=== PATIENT | male | born 1970 | race Caucasian/White ===

== ENCOUNTER 2020-02-22 13:44 | Emergency (ER) | payer BC ==
[~2020-02-22] VITALS: Ht 177.8 cm; Wt 102.1 kg
[~2020-02-22 13:44] MED LIST: CHOLESTEROL MED; Cipro500 MG PO; Flomax0.4 MG PO; HYDACE5 PO; LISI5 PO; LORA.5 PO; MELO7.5; NAPR500 PO; NAPR550 PO; ONDA4ODT MM; OXYACE5T PO; OXYACE7.5T PO; OXYC10ER PO; PRED20 PO; PROM25 PO; PSEU30 PO; TAMS.4ER PO; UNK BP MED; VOLTAREN GEL; Zofran8 MG PO
[2020-02-22 14:39] LABS: Source, Urine Clean Catch
[2020-02-22 14:45] LABS: BASOPHILS ABSOLUTE AUTO 0.07 K/mm3 (0.00-0.23); BASOPHILS PERCENT AUTO 1 % (0-2); EOSINOPHILS ABSOLUTE AUTO 0.17 K/mm3 (0.00-0.68); EOSINOPHILS PERCENT AUTO 2 % (0-6); Hematocrit 44.7 % (37.0-53.0); Hemoglobin 15.1 g/dL (13.5-17.5); IMMATURE GRAN ABSOLUTE AUTO 0.02 K/mm3 (0.00-0.10); IMMATURE GRAN PERCENT AUTO 0 % (0-1); LYMPHOCYTES ABSOLUTE AUTO 1.63 K/mm3 (0.84-5.20); LYMPHOCYTES PERCENT AUTO 20 % (21-46); MONOCYTES ABSOLUTE AUTO 0.69 K/mm3 (0.16-1.47); MONOCYTES PERCENT AUTO 9 % (4-13); Mean Corpuscular HGB 31.5 pg (26.0-34.0); Mean Corpuscular HGB Conc 33.8 g/dL (31.5-36.5); Mean Corpuscular Volume 93 fL (80-100); Mean Platelet Volume 9.6 fL (9.1-12.4); NEUTROPHILS ABSOLUTE AUTO 5.55 K/mm3 (1.96-9.15); NEUTROPHILS PERCENT AUTO 68 % (41-73); Platelet Count 247 K/mm3 (150-400); RDW Coefficient Variation 12.3 % (11.7-14.2); RDW Standard Deviation 42.2 fL (35.1-46.3); Red Blood Cell Count 4.79 M/mm3 (4.30-5.90); White Blood Cell Count 8.13 K/mm3 (4.00-11.30)
[2020-02-22 15:04] LABS: Bilirubin, Urine Neg (Neg); Blood, Urine 5+ (Neg); Glucose Qualitative, Urine Neg (Neg); Ketones, Urine Neg (Neg); Leukocyte Esterase, Urine Neg (Neg); Nitrite, Urine Neg (Neg); Protein, Urine Neg (Neg); Specific Gravity, Urine 1.025 (1.003-1.022); Urobilinogen, Urine NORM (Normal)
[2020-02-22 15:07] LABS: Albumin, Blood 4.6 g/dL (3.4-5.0); Albumin/Globulin Ratio 1.2 (0.8-1.8); Bilirubin, Total 0.6 mg/dL (0.1-1.0); Bun/Creatinine Ratio 17.4 (12.0-20.0); Calcium, Blood 9.4 mg/dL (8.5-10.1); Creatinine, Blood 1.38 mg/dL (0.60-1.20); Globulin, Blood 3.9 g/dL (2.2-4.0); Potassium, Blood 3.9 mmol/L (3.5-5.5); Total Protein, Blood 8.5 g/dL (6.4-8.2)
[2020-02-22 15:10] LABS: Appearance, Urine Clear (Clear); Color, Urine Yellow (P-Yellow)
[2020-02-22 15:15] LABS: Bacteria Rare /hpf; Squamous Epithelial Cells Rare /hpf (Few); Uric Acid Crystals Many /hpf; White Blood Cells, Urine Not Seen /hpf (0-5)
[2020-02-22] MEDS ORDERED: ONDA4ODT MM (15:46)
[2020-02-22] MEDS ORDERED: Norco 5-325 Ta1 EACH PO (15:46)
[2020-02-22] MEDS ORDERED: Flomax0.4 MG PO (15:46)
[2020-02-22] MEDS ORDERED: Pravachol40 MG PO (16:04)
== END 2020-02-22 17:26 | disposition home or self-care (01) ==
LOC: ER 13:44
PROVIDERS: Physician Assistant
DX: N13.2 Hydronephrosis with renal and ureteral calculous obstruction (principal); Z79.899 Other long term (current) drug therapy; I10 Essential (primary) hypertension; F41.9 Anxiety disorder, unspecified
CPT/HCPCS: 36415; 74176; 80053; 81001; 83690; 85025; 96361; 96374; 96375; 99284-25; J1170; J2405; J7120

== ENCOUNTER 2020-05-03 05:50 | Emergency (ER) | payer BC ==
[~2020-05-03] VITALS: Ht 177.8 cm; Wt 102.1 kg
[~2020-05-03 05:50] MED LIST changes: +Norco 5-325 Ta1 EACH PO; +Pravachol40 MG PO
[2020-05-03 06:13] LABS: Source, Urine Clean Catch
[2020-05-03 06:18] LABS: Bilirubin, Urine Neg (Neg); Blood, Urine 3+ (Neg); Glucose Qualitative, Urine Neg (Neg); Ketones, Urine Neg (Neg); Leukocyte Esterase, Urine Neg (Neg); Nitrite, Urine Neg (Neg); Protein, Urine Neg (Neg); Specific Gravity, Urine 1.015 (1.003-1.022); Urobilinogen, Urine NORM (Normal)
[2020-05-03 06:25] LABS: Appearance, Urine Clear (Clear); Color, Urine Yellow (P-Yellow)
[2020-05-03 06:26] LABS: Bacteria Not Seen /hpf; Squamous Epithelial Cells Rare /hpf (Few); White Blood Cells, Urine Not Seen /hpf (0-5)
[2020-05-03 06:31] LABS: BASOPHILS ABSOLUTE AUTO 0.06 K/mm3 (0.00-0.23); BASOPHILS PERCENT AUTO 1 % (0-2); EOSINOPHILS ABSOLUTE AUTO 0.11 K/mm3 (0.00-0.68); EOSINOPHILS PERCENT AUTO 1 % (0-6); Hematocrit 44.2 % (37.0-53.0); Hemoglobin 14.9 g/dL (13.5-17.5); IMMATURE GRAN ABSOLUTE AUTO 0.03 K/mm3 (0.00-0.10); IMMATURE GRAN PERCENT AUTO 0 % (0-1); LYMPHOCYTES ABSOLUTE AUTO 1.23 K/mm3 (0.84-5.20); LYMPHOCYTES PERCENT AUTO 10 % (21-46); MONOCYTES ABSOLUTE AUTO 1.25 K/mm3 (0.16-1.47); MONOCYTES PERCENT AUTO 10 % (4-13); Mean Corpuscular HGB 31.6 pg (26.0-34.0); Mean Corpuscular HGB Conc 33.7 g/dL (31.5-36.5); Mean Corpuscular Volume 94 fL (80-100); Mean Platelet Volume 9.5 fL (9.1-12.4); NEUTROPHILS ABSOLUTE AUTO 9.56 K/mm3 (1.96-9.15); NEUTROPHILS PERCENT AUTO 78 % (41-73); Platelet Count 268 K/mm3 (150-400); RDW Coefficient Variation 12.2 % (11.7-14.2); RDW Standard Deviation 42.4 fL (35.1-46.3); Red Blood Cell Count 4.71 M/mm3 (4.30-5.90); White Blood Cell Count 12.24 K/mm3 (4.00-11.30)
[2020-05-03 06:50] LABS: Albumin, Blood 4.1 g/dL (3.4-5.0); Bilirubin, Total 0.8 mg/dL (0.1-1.0); Bun/Creatinine Ratio 10.8 (12.0-20.0); Calcium, Blood 9.4 mg/dL (8.5-10.1); Creatinine, Blood 1.58 mg/dL (0.60-1.20); Globulin, Blood 4.2 g/dL (2.2-4.0); Total Protein, Blood 8.3 g/dL (6.4-8.2)
[2020-05-03] MEDS ORDERED: TAMS.4ER PO (07:12)
[2020-05-03] MEDS ORDERED: HYDACE10B PO (07:12)
== END 2020-05-03 07:45 | disposition home or self-care (01) ==
LOC: ER 05:50
PROVIDERS: Emergency Medicine
DX: N13.2 Hydronephrosis with renal and ureteral calculous obstruction (principal); I10 Essential (primary) hypertension; F41.9 Anxiety disorder, unspecified; Z79.899 Other long term (current) drug therapy
CPT/HCPCS: 36415; 74176; 80053; 81001; 83690; 85025; 96361; 96374; 96375; 99284-25; J1885; J2405; J7030

== ENCOUNTER 2021-03-15 12:25 | Inpatient (IN) | payer BC ==
[~2021-03-15] VITALS: Ht 177.8 cm; Wt 95.8 kg
[~2021-03-15 12:25] MED LIST changes: +HYDACE10B PO
[2021-03-15 13:06] LABS: Hematocrit 47.3 % (37.0-53.0); Hemoglobin 16.5 g/dL (13.5-17.5); Mean Corpuscular HGB 30.9 pg (26.0-34.0); Mean Corpuscular HGB Conc 34.9 g/dL (31.5-36.5); Mean Corpuscular Volume 89 fL (80-100); Mean Platelet Volume 9.7 fL (9.1-12.4); Platelet Count 281 K/mm3 (150-400); RDW Coefficient Variation 12.8 % (11.7-14.2); RDW Standard Deviation 41.6 fL (35.1-46.3); Red Blood Cell Count 5.34 M/mm3 (4.30-5.90); White Blood Cell Count 11.03 K/mm3 (4.00-11.30)
[2021-03-15] MEDS ORDERED: LISI20 PO (13:20)
[2021-03-15] MEDS ORDERED: HYDCHL25 PO (13:24)
[2021-03-15] MEDS ORDERED: LIPITOR80 MG PO (13:30)
[2021-03-15] MEDS ORDERED: FENTANYL1 EA10 TOP (13:31)
[2021-03-15 13:46] LABS: BAND PERCENT MAN 2 % (0-8); BASOPHILS PERCENT MAN 0 % (0-2); EOSINOPHILS PERCENT MAN 0 % (0-6); LYMPHOCYTES % ATYPICAL MANUAL 3 % (0-0); LYMPHOCYTES ABSOLUTE MAN 1.76 K/mm3 (0.84-5.20); LYMPHOCYTES PERCENT MAN 13 % (21-46); METAMYELOCYTE ABSOLUTE MAN 0.22 K/mm3 (0.00-0.00); METAMYELOCYTE PERCENT MAN 2 % (0-0); MONOCYTES ABSOLUTE MAN 1.65 K/mm3 (0.16-1.47); MONOCYTES PERCENT MAN 15 % (4-13); NEUTROPHILS ABSOLUTE MAN 7.39 K/mm3 (1.96-9.15); SEG NEUTROPHILS PERCENT MAN 65 % (41-73); TOTAL CELLS COUNTED 100
[2021-03-15 13:55] LABS: Albumin, Blood 2.9 g/dL (3.4-5.0); Albumin/Globulin Ratio 0.6 (0.8-1.8); Bun/Creatinine Ratio 26.1 (12.0-20.0); Calcium, Blood 8.9 mg/dL (8.5-10.1); Creatinine, Blood 1.61 mg/dL (0.60-1.20); Globulin, Blood 5.2 g/dL (2.2-4.0); Potassium, Blood 3.7 mmol/L (3.5-5.5); Total Protein, Blood 8.1 g/dL (6.4-8.2)
[2021-03-15 14:59] LABS: SARS-Cov-2 (COVID-19) PCR, MMC POSITIVE (NEGATIVE)
[2021-03-16 03:55] LABS: BASOPHILS ABSOLUTE AUTO 0.04 K/mm3 (0.00-0.23); BASOPHILS PERCENT AUTO 1 % (0-2); EOSINOPHILS PERCENT AUTO 0 % (0-6); Hematocrit 45.7 % (37.0-53.0); Hemoglobin 15.7 g/dL (13.5-17.5); Mean Corpuscular HGB 31.1 pg (26.0-34.0); Mean Corpuscular HGB Conc 34.4 g/dL (31.5-36.5); Mean Corpuscular Volume 91 fL (80-100); Mean Platelet Volume 9.8 fL (9.1-12.4); Platelet Count 311 K/mm3 (150-400); RDW Coefficient Variation 12.8 % (11.7-14.2); RDW Standard Deviation 42.5 fL (35.1-46.3); Red Blood Cell Count 5.05 M/mm3 (4.30-5.90); White Blood Cell Count 7.43 K/mm3 (4.00-11.30)
[2021-03-16 03:56] LABS: IMMATURE GRAN ABSOLUTE AUTO 0.23 K/mm3 (0.00-0.10); IMMATURE GRAN PERCENT AUTO 3 % (0-1); LYMPHOCYTES ABSOLUTE AUTO 1.08 K/mm3 (0.84-5.20); LYMPHOCYTES PERCENT AUTO 15 % (21-46); MONOCYTES ABSOLUTE AUTO 0.88 K/mm3 (0.16-1.47); MONOCYTES PERCENT AUTO 12 % (4-13); NEUTROPHILS PERCENT AUTO 70 % (41-73)
[2021-03-16 04:16] LABS: Albumin, Blood 2.5 g/dL (3.4-5.0); Albumin/Globulin Ratio 0.5 (0.8-1.8); Bilirubin, Total 0.6 mg/dL (0.1-1.0); Bun/Creatinine Ratio 26.4 (12.0-20.0); Calcium, Blood 9.3 mg/dL (8.5-10.1); Creatinine, Blood 1.4 mg/dL (0.60-1.20); Globulin, Blood 5.1 g/dL (2.2-4.0); Potassium, Blood 4.2 mmol/L (3.5-5.5); Total Protein, Blood 7.6 g/dL (6.4-8.2)
--- NOTE | 2021-03-16 05:53 | NUR ---
SHIFT SUMMARY PATIENT ADMITTED TO FLOOR AT APPROXIMETLY 2
--- NOTE | 2021-03-16 07:14 | NUR ---
SHIFT SUMMARY PATIENT ADMITTED TO FLOOR AT APPROXIMETLY 2130 FROM ER. FOUND TO BE A PLESANT MAN WHO IS A&OX4, WITH SOME GEN WEAKNESS. ON BIPAP WITH A 15L BLEED IN TO START AND WEANED TO 12L THROUGH SHIFT. TOLERATING WELL SATING IN THE MID 90'S. DID WELL TURNING SIDE TO SIDE IN BED AND PRONING FOR LITTLE BITS AT A TIME. SB/SR ON MONITOR. VSS. BEDREST AND NPO UNTIL O2 DEMANDS DECREASE. SWALLOWING OK WITH SIPS OF WATER AND ORAL CARE Q2H. NO ACUTE CONCERNS AT THIS TIME. REPORT GIVEN TO ROBERT BARRERA.
--- NOTE | 2021-03-16 14:00 | NUR ---
UPDATE PHYSICIAN AT BEDSIDE. PT PUT ON OXYMIZER AT 15 L. PT O2 SAT OVER 90%. PT ABLE TO HAVE PO INTAKE AT THIS TIME PER PHYSICIAN ORDER. WILL CONT TO MONITOR.
[2021-03-16 16:22] LABS: Source, Urine Clean Catch
[2021-03-16 16:25] LABS: Appearance, Urine Clear (Clear); Bilirubin, Urine Neg (Neg); Blood, Urine 1+ (Neg); Color, Urine Yellow (P-Yellow); Glucose Qualitative, Urine Neg (Neg); Ketones, Urine Neg (Neg); Leukocyte Esterase, Urine Neg (Neg); Nitrite, Urine Neg (Neg); Protein, Urine 2+ (Neg); Specific Gravity, Urine 1.015 (1.003-1.022); Urobilinogen, Urine NORM (Normal)
[2021-03-16 16:40] LABS: Bacteria Mod /hpf; Hyaline Casts 0-2 /lpf (0-2); Squamous Epithelial Cells Few /hpf (Few); White Blood Cells, Urine 0-2 /hpf (0-5)
--- NOTE | 2021-03-16 18:44 | NUR ---
UPDATE ATTEMPTED TO CONTACT PT'S DAUGHTER. NO ANSWER AT THIS TIME.
--- NOTE | 2021-03-16 18:53 | NUR ---
SHIFT SUMMARY PT ALERT AND ORIENTED X 4. HR STABLE. TACHY AT TIMES. BP STABLE. PT ABLE TO TURN SELF IN BED. PHYSICIAN AT BEDSIDE FOR TRIAL WITH OXYMIZER AT 15 L. PT TOLERATED WELL. OXGEN SATURATION MAINTAINED ABOVE 92% ON 15 L VIA OXYMIZER. NO CP OR PRESSURE NOTED. WILL CONT TO MONITOR UNTIL REPORT GIVEN TO NIGHTSHIFT RN.
--- NOTE | 2021-03-17 06:37 | NUR ---
SHIFT SUMMARY PATIENT FOUND TO BE A PLESANT MAN WHO IS A&OX4 WITH SOME GEN WEAKNESS. VSS. SR/SB ON THE MONITOR. ON 14L OXYMIZER SATING MID 90'S. DRY COUGH NOTED. DOING WELL WITH TURNING AND PARTIALLY PRONING SELF. TOELRATING REG DIET WITH NAUSEA. VOIDING WELL PER URINAL. NO ACUTE CONCERNS AT THIS TIME. NO DISTRESS OR PAIN NOTED UPON ASSESSMENT. WILL CONTINUE TO MONITOR UNTIL REPORT GIVEN TO DAYSHILUL RN.
[2021-03-17 09:34] LABS: BASOPHILS ABSOLUTE AUTO 0.06 K/mm3 (0.00-0.23); BASOPHILS PERCENT AUTO 0 % (0-2); EOSINOPHILS PERCENT AUTO 0 % (0-6); Hematocrit 46.2 % (37.0-53.0); Hemoglobin 15.8 g/dL (13.5-17.5); Mean Corpuscular HGB 31.2 pg (26.0-34.0); Mean Corpuscular HGB Conc 34.2 g/dL (31.5-36.5); Mean Corpuscular Volume 91 fL (80-100); Mean Platelet Volume 9.7 fL (9.1-12.4); Platelet Count 407 K/mm3 (150-400); RDW Coefficient Variation 12.7 % (11.7-14.2); RDW Standard Deviation 42.4 fL (35.1-46.3); Red Blood Cell Count 5.06 M/mm3 (4.30-5.90); White Blood Cell Count 14.92 K/mm3 (4.00-11.30)
[2021-03-17 09:42] LABS: IMMATURE GRAN ABSOLUTE AUTO 0.46 K/mm3 (0.00-0.10); IMMATURE GRAN PERCENT AUTO 3 % (0-1); LYMPHOCYTES ABSOLUTE AUTO 1.78 K/mm3 (0.84-5.20); LYMPHOCYTES PERCENT AUTO 12 % (21-46); MONOCYTES ABSOLUTE AUTO 2.21 K/mm3 (0.16-1.47); MONOCYTES PERCENT AUTO 15 % (4-13); NEUTROPHILS ABSOLUTE AUTO 10.41 K/mm3 (1.96-9.15); NEUTROPHILS PERCENT AUTO 70 % (41-73)
[2021-03-17 09:52] LABS: Anion Gap 7 mmol/L (6-16); Blood Urea Nitrogen 40 mg/dL (8-24); Bun/Creatinine Ratio 33.1 (12.0-20.0); CO2, Blood 30 mmol/L (21-32); Calcium, Blood 9.3 mg/dL (8.5-10.1); Chloride, Blood 103 mmol/L (98-108); Creatinine, Blood 1.21 mg/dL (0.60-1.20); Glomerular Filtration Rate >60 (60-); Glucose, Blood 131 mg/dL (70-99); Potassium, Blood 3.9 mmol/L (3.5-5.5); Sodium, Blood 140 mmol/L (136-145); Troponin I <0.015 ng/mL (0.000-0.040)
--- NOTE | 2021-03-17 10:00 | NUR ---
UPDATE PHYSICIAN NOTIFIED OF POSSIBLE ST ELEVATION. TROPONIN ORDERED, WNL. NO NEW ORDERS D/T NEGATIVE TROP.
--- NOTE | 2021-03-17 11:42 | NUR ---
UPDATE UPDATED ON PT AT THIS TIME.
--- NOTE | 2021-03-17 18:19 | NUR ---
SHIFT SUMMARY PT ALERT AND ORIENTED X 4. HR STABLE. BP STABLE. OXYGEN SATURATION MAINTAINED ABOVE 92% ON 15 L OF OXGEN VIA OXYMIZER. PT ABLE TO TURN SELF IN BED. ENCOURAGED TO PRONE. NO CP OR PRESSURE. WILL CONT TO MONITOR UNTIL REPORT GIVEN TO NIGHTSHIFT RN.
--- NOTE | 2021-03-18 06:09 | NUR ---
SHIFT SUMMARY PATIENT IS A PLESANT MAN WHO IS A&OX4 WITH SOME GEN WEAKNESS. ON 14L OXYMIZER AT THIS TIME. COUGH IS WORSENING PER PATIENT REPORT AND PRN MUCINEX ADDED TO MAR PER MD. COUGHING FITS MAKES HIM DESAT BUT RECOVERS WELL. DOING WELL WITH SELF TURNING AND PRONING. TACHYPENIC AFTER ANY EXERTION. VSS. SR/SB ON THE MONITOR. DID DROP TO HIGH 40'S AT THE LOWEST BUT REMAINED ASYMPTOMATIC RESTING IN BED. TOLERATING REGULAR DIET. ONE BM PER BSC. VOIDING WELL PER URINAL. SBA IN ROOM. NO ACUTE CONCERNS AT THIS TIME. WILL CONTINUE TO MONITOR UNTIL REPORT GIVEN TO ROBERT BARRERA.
--- NOTE | 2021-03-18 17:13 | NUR ---
SHIFT SUMMARY PT ALERT AND ORIENTED X 4. HR STABLE. BP STABLE. OXYGEN SATURATION MAINTAINED ABOVE 92% ON 14 L OF OXYGEN VIA NC. PT DESATS QUICKLY WITH ACTIVIY, ABLE TO RECOVER QUICKLY WITH DEEP BREATHING. PT SBA TO COMMODE. NO CP OR PRESSURE REPORTED. WILL CONT TO MONITOR UNTIL REPORT GIVEN TO NIGHTSHIFT RN.
--- NOTE | 2021-03-18 20:10 | NUR ---
PT ALERT AND ORIENTING, LYING IN LOW SEMI FOWLERS POSITION IN BED. PT DENIES ANY HEADACHE, CHEST PAIN, NAUSEA, OR NUMBNESS AND TINGLING. PT REPORTS SOB WITH ACTIVITY, DENIES SOB WHILE RESTING IN BED. PT IS ON 14L OXYGEN VIA OXYMIZER. VSS. LS ARE CLEAR, DIM IN THE BASES. SATS WNL. CALL LIGHT WITHIN REACH. BED IN LOW POSITION. FLUIDS AT BEDSIDE.
--- NOTE | 2021-03-18 21:20 | NUR ---
RESPIRATORY THERAPY IN ROOM - PT TO HIS LEFT SIDE IN BED. SATS VARY 87-91% ON 15L OXYGEN VIA OXYMIZER. PT JUST UP TO BRP WITH SBA.
--- NOTE | 2021-03-18 23:09 | NUR ---
REPORT GIVEN TO BRUCE COSTA ON MEDICAL FLOOR. UPDATED PT ON ROOM TRANSFER TO MEDICAL FLOOR. SOLDERER TORCH'S TO TAKE PT AND BELONGINGS TO ROOM 354.
--- NOTE | 2021-03-19 06:50 | NUR ---
SHIFT SUMMARY PCU XFER THIS SHIFT, NO ACUTE CHANGES SINCE ASSUMING CARE, NO C/O ANY KIND, CALL LIGHT IN REACH, WILL CONT TO MONITOR UNTIL REPORT GIVEN TO DAY RN.
--- NOTE | 2021-03-19 14:52 | NUR ---
Pt. is in bed , Jamie Pt. offered prayers for the pt. from outside door of her room.
--- NOTE | 2021-03-19 19:53 | NUR ---
SHIFT SUMMARY PT UP TO COMMODE FOR BM THIS AFTERNOON AND TOLERATED WITH PACING HIMSELF. HELPING HANDS IN ROOM AND WALKED WITH PT IN ROOM. REPORTED HE WALKED ABOUT 10 FEET BEFORE DESATING TO 88%. PT LEARNED MOTHER IN LAW TODAY FROM COVID.
--- NOTE | 2021-03-20 04:54 | NUR ---
SHIFT SUMMARY PT HAS DONE WELL THIS SHIFT, PT IS AWARE OF HOW REPOSITIONING HELPS WITH OXYGENATION AND LAYS ON RIGHT SIDE TO IMPROVE BREATHING NEEDED. PT CURRENTLY ON 15L HIGH FLOW SATS IN THE MID 'S. PT A/OX4, MAKES NEEDS KNOWN. BED IN LOWEST POSITION, CALL LIGHT WITHIN REACH.
--- NOTE | 2021-03-20 16:13 | NUR ---
SHIFT SUMMARY PATIENT DENIES PAIN AND NAUSEA. PATIENT GETS VERY SHORT OF BREATH WITH ACTIVITY. PATIENT DESATS QUICKLY WITH ACTIVITY. PATIENT RECOVERS SLOWLY. PATIENT ON 15L OXIMIZER. PATIENT MAINTAINING SATURATIONS ABOVE 91% AT REST. PATIENT EATING AND DRINKING WELL. PATIENT IS PLEASANT AND COOPERATIVE WITH CARE.
--- NOTE | 2021-03-21 05:16 | NUR ---
SHIFT SUMMARY PATIENT HAD NO ACUTE CHANGES OBSERVED. AXOX 3 AND BEDREST. ON 15L OXIMIZER STATING 90-92% CONTINUOUS PULSE OXIMETRY. PIV REMAINS INTACT. VSS/AFEBRILE. DENIES PAIN AND N/V. COOPERATIVE WITH CARE. CALL LIGHT IN REACH. BED IN LOWEST POSITION. WILL CONTINUE TO MONITOR UNTIL DAY SHIFT NURSE ASSUMES CARE.
--- NOTE | 2021-03-22 04:39 | NUR ---
SHIFT SUMMARY PATIENT HAD NO ACUTE CHANGES OBSERVED. AXOX 3 AND ONE ASSIST TO BSC. ON 15L OXIMIZER STATING 92-93% CONTINUOUS PULSE OXIMETRY. USES URINAL AT BEDSIDE. PIV REMAINS INTACT. DENIES PAIN AND N/V. VSS/AFEBRILE. COOPERATIVE WITH CARE. CALL LIGHT IN REACH. BED IN LOWEST POSITION. [facility].
--- NOTE | 2021-03-22 22:10 | NUR ---
PT HAS BEEN SATURATING 94-97% ON 14L OXIMIZER SINCE THE BEGINNING OF THE SHIFT. PT REPORTS NO SOB OR DIFFICULTY BREATHING AT THIS TIME. PT AGREEABLE TO DECREASING OXYGEN TO 13L. PT EDUCATED ON PRESSING CALL LIGHT FOR ANY SOB OR CHANGES TO BREATHING. OXYGEN SATURATION WILL BE MONITORED.
--- NOTE | 2021-03-22 23:29 | NUR ---
PT CONTINUES TO SATURATE 97% ON THE 13L BY OXIMIZER AND IS AGAIN AGREEABLE TO DECREASING TO 12L BY OXIMIZER. AGAIN INFORMED OF POSSIBLE SOB AND PRESSING CALL LIGHT.
--- NOTE | 2021-03-23 03:35 | NUR ---
PT SATURATING AT 98% ON 12L BY OXIMIZER WHILE SLEEPING. OXYGEN LOWERED TO 11L BY OXIMIZER. WILL CONTINUE TO MONITOR O2 SATURATION.
--- NOTE | 2021-03-23 04:46 | NUR ---
HOUSING SPECIALIST SUMMARY ADMITTED FOR COVID-19. PT IS FULL CODE. PT HAS BEEN TITRATED DOWN FROM 14L BY OXIMIZER TO 11L BY OXIMIZER WITH SATURATION MAINTAINING AT 95% AND NO COMPLAINTS OF SOB. PT HAS BEEN INDEPENDENT IN THE ROOM WHILE MAINTAINING SATURATION OVER 90%. NO OTHER CONCERNS AT THIS TIME. CALL LIGHT WITHIN REACH. ISOLATION MAINTAINED.
[2021-03-23 05:09] LABS: BASOPHILS ABSOLUTE AUTO 0.04 K/mm3 (0.00-0.23); BASOPHILS PERCENT AUTO 0 % (0-2); EOSINOPHILS PERCENT AUTO 0 % (0-6); Hematocrit 45.1 % (37.0-53.0); Hemoglobin 15.1 g/dL (13.5-17.5); IMMATURE GRAN ABSOLUTE AUTO 0.56 K/mm3 (0.00-0.10); IMMATURE GRAN PERCENT AUTO 4 % (0-1); LYMPHOCYTES ABSOLUTE AUTO 1.19 K/mm3 (0.84-5.20); LYMPHOCYTES PERCENT AUTO 9 % (21-46); MONOCYTES ABSOLUTE AUTO 1.26 K/mm3 (0.16-1.47); MONOCYTES PERCENT AUTO 10 % (4-13); Mean Corpuscular HGB 30.9 pg (26.0-34.0); Mean Corpuscular HGB Conc 33.5 g/dL (31.5-36.5); Mean Corpuscular Volume 92 fL (80-100); Mean Platelet Volume 9.5 fL (9.1-12.4); NEUTROPHILS ABSOLUTE AUTO 10.11 K/mm3 (1.96-9.15); NEUTROPHILS PERCENT AUTO 77 % (41-73); Platelet Count 454 K/mm3 (150-400); RDW Coefficient Variation 12.3 % (11.7-14.2); RDW Standard Deviation 41.8 fL (35.1-46.3); Red Blood Cell Count 4.88 M/mm3 (4.30-5.90); White Blood Cell Count 13.16 K/mm3 (4.00-11.30)
[2021-03-23 05:33] LABS: Alanine Aminotransfer (ALT/SGP 192 U/L (12-78); Albumin, Blood 2.7 g/dL (3.4-5.0); Albumin/Globulin Ratio 0.6 (0.8-1.8); Alk Phos 83 U/L (50-136); Anion Gap 3 mmol/L (6-16); Aspartate Aminotrans (AST/SGOT 43 U/L (12-37); Bilirubin, Total 0.6 mg/dL (0.1-1.0); Blood Urea Nitrogen 23 mg/dL (8-24); Bun/Creatinine Ratio 21.9 (12.0-20.0); CO2, Blood 33 mmol/L (21-32); Calcium, Blood 9.3 mg/dL (8.5-10.1); Chloride, Blood 100 mmol/L (98-108); Creatinine, Blood 1.05 mg/dL (0.60-1.20); Globulin, Blood 4.8 g/dL (2.2-4.0); Glomerular Filtration Rate >60 (60-); Glucose, Blood 149 mg/dL (70-99); Potassium, Blood 4.8 mmol/L (3.5-5.5); Sodium, Blood 136 mmol/L (136-145); Total Protein, Blood 7.5 g/dL (6.4-8.2)
--- NOTE | 2021-03-23 06:52 | NUR ---
PT CONTINUES TO SATURATE ABOVE 95% AND IS NOW TITRATED DOWN TO 10L BY OXIMIZER.
--- NOTE | 2021-03-23 19:33 | NUR ---
PT IS RESTING IN BED MAKING NO COMPLAINTS AT THIS TIME. PT REMAINS ALERT AND ORIENTED X4. O2 DECREASED TO 6L NC, SAT ABOVE 90. WILL CONTINUE TO MONITOR.
--- NOTE | 2021-03-24 06:34 | NUR ---
SHIFT SUMMARY ADMITTED FOR LOW OXYGEN DUE TO COVID-19. PT IS A FULL CODE. PT CONTINUES TO BE INDEPENDENT IN THE ROOM WITH NO COMPLAINTS OF SOB. PT HAS MAINTAINED >92% SATURATION ON 6L BY NASAL CANNULA THROUGHOUT THE NIGHT. NO OTHER CONCERNS AT THIS TIME. ISOLATION MAINTAINED.
--- NOTE | 2021-03-24 19:09 | NUR ---
PT REMAINS ALERT AND ORIENTED X4. NO INCREASED O2 NEEDS, NO CHANGES. WILL CONTINUE TO MONITOR.
--- NOTE | 2021-03-25 03:52 | NUR ---
DRESS DESIGNER SUMMARY ADMITTED FOR HYPOXIA SECONDARY TO COVID-19. PT IS FULL CODE. PT MAINTAINING SATURATION AROUND 91-93% ON 6L BY NC. NO COMPLAINTS OF SOB. PT REQUESTED TO WALK TO THE RESTROOM WHEN NEEDING TO URINATE; DENIES SOB. PT AGREEABLE WITH PLAN FOR D/C TOMORROW ON SUPPLEMENTAL OXYGEN. NO OTHER CONCERNS AT THIS TIME. ISOLATION MAINTAINED. CALL LIGHT WITHIN REACH.
[2021-03-25] MEDS ORDERED: DECADRON6 M1 PO (13:02)
[2021-03-25] MEDS ORDERED: VITAMIN D31000 UNI1 PO (13:02)
--- NOTE | 2021-03-25 16:34 | NUR ---
PT DISCHARGED WITH INSTRCTION- HOME O2 SET UP - 5L NC WITH PORTABLE O2 TANK, AILYN TO MEET PT AT HIS HOME FOR SET UP. STAFF ESCORT W/C OUTSIDE TO PRIVATE CAR. SENT HOME WITH BELONGINGS.
== END 2021-03-25 16:27 | disposition home or self-care (01) | DRG 177 ==
LOC: ER 12:25 → ERHOLD 15:11 → PCU 15:11 → MEDS 03-18 23:24
PROVIDERS: Emergency Medicine; Hospitalist; Internal Medicine; Nurse Practitioner Acute Care; Physician Assistant; ADMIT Internal Medicine
PROC: 8E0ZXY6 Isolation (ICD-10-PCS; principal; 2021-03-15)
PROC: 3E0333Z Introduction of Anti-inflammatory into Peripheral Vein, Percutaneous Approach (ICD-10-PCS; 2021-03-15)
PROC: 5A09357 Assistance with Respiratory Ventilation, Less than 24 Consecutive Hours, Continuous Positive Airway Pressure (ICD-10-PCS; 2021-03-15)
PROC: 5A0945A Assistance with Respiratory Ventilation, 24-96 Consecutive Hours, High Flow/Velocity Cannula (ICD-10-PCS; 2021-03-16)
PROC: XW033E5 Introduction of Remdesivir Anti-infective into Peripheral Vein, Percutaneous Approach, New Technology Group 5 (ICD-10-PCS; 2021-03-16)
DX: U07.1 COVID-19 (principal); J12.82 Pneumonia due to coronavirus disease 2019; J96.01 Acute respiratory failure with hypoxia; N17.9 Acute kidney failure, unspecified; E87.1 Hypo-osmolality and hyponatremia; I10 Essential (primary) hypertension; T50.2X5A Adverse effect of carbonic-anhydrase inhibitors, benzothiadiazides and other diuretics, initial encounter; E66.9 Obesity, unspecified; E86.0 Dehydration; R74.01 Elevation of levels of liver transaminase levels; E78.5 Hyperlipidemia, unspecified; M19.021 Primary osteoarthritis, right elbow; Z87.442 Personal history of urinary calculi; Z79.899 Other long term (current) drug therapy; Z68.32 Body mass index [BMI] 32.0-32.9, adult
CPT/HCPCS: 36415; 71045; 80048; 80053; 81001; 82550; 83735; 84100; 84145; 84484; 85025; 87086; 93005; 93010; 94660; 94761; 94762; 96374; 97110; 97116; 97162; 97530; 99285-25; A9270; J1100; J1650; J7030; U0004

== ENCOUNTER 2024-05-29 15:06 | Emergency (ER) | payer BC ==
[~2024-05-29] VITALS: Ht 177.8 cm; Wt 87.5 kg
[~2024-05-29 15:06] MED LIST changes: +DECADRON6 M1 PO; +FENTANYL1 EA10 TOP; +HYDCHL25 PO; +LIPITOR80 MG PO; +LISI20 PO; +VITAMIN D31000 UNI1 PO
[2024-05-29 15:55] LABS: BASOPHILS ABSOLUTE AUTO 0.08 K/mm3 (0.00-0.23); BASOPHILS PERCENT AUTO 1 % (0-2); EOSINOPHILS ABSOLUTE AUTO 0.07 K/mm3 (0.00-0.68); EOSINOPHILS PERCENT AUTO 1 % (0-6); Hematocrit 47.1 % (37.0-53.0); Hemoglobin 16.5 g/dL (13.5-17.5); IMMATURE GRAN ABSOLUTE AUTO 0.01 K/mm3 (0.00-0.10); IMMATURE GRAN PERCENT AUTO 0 % (0-1); LYMPHOCYTES ABSOLUTE AUTO 1.61 K/mm3 (0.84-5.20); LYMPHOCYTES PERCENT AUTO 27 % (21-46); MONOCYTES ABSOLUTE AUTO 0.53 K/mm3 (0.16-1.47); MONOCYTES PERCENT AUTO 9 % (4-13); Mean Corpuscular HGB 32.5 pg (26.0-34.0); Mean Corpuscular Volume 93 fL (80-100); Mean Platelet Volume 9.9 fL (9.1-12.4); NEUTROPHILS ABSOLUTE AUTO 3.72 K/mm3 (1.96-9.15); NEUTROPHILS PERCENT AUTO 62 % (41-73); Platelet Count 277 K/mm3 (150-400); RDW Coefficient Variation 12.9 % (11.7-14.2); RDW Standard Deviation 43.9 fL (35.1-46.3); Red Blood Cell Count 5.08 M/mm3 (4.30-5.90); White Blood Cell Count 6.02 K/mm3 (4.00-11.30)
[2024-05-29 16:14] LABS: Albumin, Blood 4.3 g/dL (3.4-5.0); Albumin/Globulin Ratio 1.1 (0.8-1.8); Bilirubin, Total 0.6 mg/dL (0.1-1.0); Bun/Creatinine Ratio 9.3 (12.0-20.0); Calcium, Blood 9.4 mg/dL (8.5-10.1); Creatinine, Blood 0.97 mg/dL (0.60-1.20); Globulin, Blood 3.8 g/dL (2.2-4.0); Potassium, Blood 3.8 mmol/L (3.5-5.5); Total Protein, Blood 8.1 g/dL (6.4-8.2)
[2024-05-29] MEDS ORDERED: Prinivil10 MG PO (17:39)
[2024-05-29 18:04] VITALS: BP 166/102
== END 2024-05-29 18:07 | disposition home or self-care (01) ==
LOC: ER 15:06
PROVIDERS: Emergency Medicine
DX: R07.89 Other chest pain (principal); I10 Essential (primary) hypertension; E78.00 Pure hypercholesterolemia, unspecified; F17.200 Nicotine dependence, unspecified, uncomplicated; Z87.442 Personal history of urinary calculi; Z86.16 Personal history of COVID-19; Z79.899 Other long term (current) drug therapy
CPT/HCPCS: 71045; 80053; 83880; 84484; 85025; 93005; 93010; 99285-25